=== PATIENT | male | born 1965 | race Caucasian/White ===

== ENCOUNTER 2020-01-18 16:58 | Emergency (ER) | payer OTHER, BC ==
[2020-01-18] MEDS ORDERED: LIDOCAINE 5% TOPICAL PATCH TP ONE (17:06)
[2020-01-18] MEDS ORDERED: LIDOCAINE 5% TOPICAL PATCH ONE (17:28)
[2020-01-18 19:10] LABS: BASO % 0.1 % (0-2.0); EOS % 0.2 % (0-4.5); HEMATOCRIT 38.5 % (35.4-49); HEMOGLOBIN 12.2 GM/dl (11.7-16.9); LYMPH % 16.7 % (8-40); MCH 25.7 pg (25.7-33.7); MCHC 31.6 g/dl (32.0-35.9); MEAN CELL VOLUME 81.2 fl (80-96); MEAN PLT VOLUME 8.6 fl (7.5-11.1); MONO % 18.3 % (3.8-10.2); NEUT % 64.7 % (42.8-82.8); PLATELET COUNT 173 K/MM3 (134-434); RBC 4.74 M/mm3 (4.00-5.60); RDW 16.4 % (11.9-15.9); WHITE BLOOD COUNT 6.7 K/mm3 (4.0-10.8)
[2020-01-18 19:13] VITALS: BP 132/81; PULSE 78; TEMP 98.4; BMI 25.4
[2020-01-18 19:34] LABS: ALK PHOS 55 U/L (45-117); ANION GAP 12 MMOL/L (8-16); BILIRUBIN,TOTAL 0.8 mg/dl (0.2-1); CALCIUM 8.7 mg/dl (8.5-10); CHLORIDE 100 mmol/L (98-107); CO2 22 mmol/L (21-32); CREATININE 0.8 mg/dl (0.55-1.3); GLUCOSE,RANDOM 103 mg/dl (74-106); POTASSIUM 4.1 mmol/L (3.5-5.1); SGOT/AST 36 U/L (15-37); SGPT/ALT 26 U/L (13-61); SODIUM 134 mmol/L (136-145); TOT PROT 7.1 g/dl (6.4-8.2)
[2020-01-18] MEDS ORDERED: oxyCODONE HCL 5 MG TABLET PO ONE (21:46)
[2020-01-18] MEDS ORDERED: oxyCODONE HCL 5 MG TABLET ONE (21:55)
[2020-01-18 23:37] LABS: ERYTHROCYTE SEDIMENTATION RATE 13 mm/hr (0-20)
== END 2020-01-18 22:10 | disposition home or self-care (01) ==
LOC: FER 16:58
DX: M54.16 Radiculopathy, lumbar region (principal); Z98.1 Arthrodesis status
CPT/HCPCS: 36415; 72131-TC; 80053; 81003; 85025; 85651; 86140; 93005; 99285-25; C9803; U0003